=== PATIENT | male | born 1960 ===

== ENCOUNTER 2017-03-01 05:40 | Inpatient (IN) | payer BC ==
[2017-02-26 13:30] LABS: HEMATOCRIT 40.2 % (40.0-51.0)
[2017-02-26 13:34] LABS: ASCORBIC ACID (UR NOT ORDER) NEG (NEG); BILIRUBIN, URINE NEGATIVE (NEG); KETONE, URINE NEGATIVE (NEG); LEUKOCYTE ESTERASE(NOT OR NEG (NEG); WBC (NOT ORDERED) (RFLEX) < 1 (0-5)
[2017-02-26 13:40] LABS: BUN (BLOOD UREA NITROGEN) 17 MG/DL (6-23); CALCIUM, SERUM 8.9 MG/DL (8.5-10.4); CHLORIDE, SERUM 109 MMOL/L (96-112); CO2 (CARBON DIOXIDE) 29 MMOL/L (24-34); CREATININE 1.03 MG/DL (0.70-1.30); GFR AFRICAN AMERICAN 95 ML/MIN (>=60); GFR NON AFRICAN AMERICAN 82 ML/MIN (>=60); GLUCOSE, SERUM 96 MG/DL (60-99); POTASSIUM, SERUM 3.7 MMOL/L (3.5-5.3); SODIUM, SERUM 143 MMOL/L (135-148)
--- NOTE | ~2017-03-01 | OP ---
Record Of Operation [facility] [address] [place]. [address] NAME: PREET WILEY : 64 STATUS : DIS IN PAT#: [id number] AGE: 56 ADM/REG DATE : 03/01/17 MR#: [id number] REPORT SERV DATE: 03/04/17 DICTATED BY: ALEKSANDRA TENA DATE: 03/03/17 REPORT STATUS : Draft TRANSCRIBED BY: SALAS DATE: 03/03/17 DATE OF PROCEDURE: 03/01/2017 POOR AUDIO, INAUDIBLE, CUTTING IN AND OUT TITLE OF OPERATIONS: 1. Robot-assisted laparoscopic radical prostatectomy. 2. Robot-assisted laparoscopic right . PREOPERATIVE DIAGNOSIS: Prostate cancer. POSTOPERATIVE DIAGNOSIS: Prostate cancer. INDICATIONS: Mr. Wiley is a 56-year-old male prostate. He is counseled regarding risks and benefits. He has elected for robotic radical prostatectomy. ANESTHESIA: General. COMPLICATIONS: None. IMPLANTS: 1. 18-Croatian Frederick catheter anterior fat pad. 2. Prostate right. NARRATIVE: The patient was brought to the operating room, identified by his wristband. General anesthesia was induced. Ancef was given for preoperative antibiotics. He was placed in dorsal lithotomy position, prepped and draped in sterile fashion. His abdomen was insufflated with 15 mmHg using a Veress needle. An 18-Croatian catheter was placed into his bladder under sterile conditions. The balloon was inflated with 10 mL of sterile water. An 8-mm port was positioned. The abdomen was inspected. It was free of adhesions. There was on the left inguinal region from his prior hernia surgery. Standard port placement was performed with two 8-mm ports on left side of the body and one 8-mm port on the right side of the body. A 12-mm port was placed in the right lower quadrant and a 5-mm port was placed in the right upper quadrant for payroll assistant ports. The patient was placed in Trendelenburg and was docked. I incised the peritoneum sharply over the seminal vesicles and vas deferens posteriorly. dissected out bilaterally. Vas deferens were clipped and divided bilaterally. The pedicle to the seminal vesicles were clipped and divided bilaterally. Next, structures were lifted anteriorly. I incised an obvious fascia sharply. Denonvilliers fascia was swept onto the rectum from the base to the apex. A decision was made to perform an aggressive nerve-sparing prostatectomy given his negative MRI for extracapsular disease preoperatively. At this point, I carried the dissection laterally to the groove of the prostate and the neurovascular bundles. Next, the bladder wall was anterior abdominal wall with cautery. This exposed the pubic bone and prostate. The left side was somewhat adhesed from the mesh. The mesh was overlying the iliac vessels. Next, the fiber fatty tissue overlying the prostate was Record Of Operation [address] [place]. [address] NAME: PREET WILEY : 64 STATUS : DIS IN PAT#: [id number] AGE: 56 ADM/REG DATE : 03/01/17 MR#: [id number] REPORT SERV DATE: 03/04/17 DICTATED BY: ALEKSANDRA TENA DATE: 03/03/17 REPORT STATUS : Draft TRANSCRIBED BY: MODL DATE: 03/03/17 removed with bipolar cautery and scissors and sent to pathology as anterior fat pad. The puboprostatic ligaments were divided bilaterally. On the right side of the body, there was an artery which was clearly going beyond the prostate into the penile area. This was preserved without injury. The levator fibers were off the prostate from the base of the apex bilaterally. The puboprostatic ligaments were divided bilaterally. The dorsal vein was precisely identified and stapled with a 35-mm endovascular stapler. The urethra was then dissected out circumferentially. A 3-0 V-Loc suture was used to oversew some small dorsal venous bleeders. This dorsal venous complex was then tacked to the pubic bone with a 3-0 V-Loc suture and suspensory stitch. Next, a high release of the neurovascular bundles were then performed bilaterally. It was taken onto the prostatic capsule. This also identified the groove between the prostate and neurovascular bundles bilaterally. Next, a bladder neck sparing operation was performed. Fibrofatty tissue overlying the bladder neck was controlled with bipolar cautery and scissors. The bladder neck was precisely identified and entered anteriorly. The catheter was identified and lifted into the surgical field. The posterior bladder neck was then sharply divided. The prostate was then sharply divided off the bladder from the bladder neck down to the area of the pre-dissected seminal vesicles and vas deferens. These were delivered into the surgical field. Next, the pedicle prostate were clipped bilaterally. A nerve-sparing operation was performed in retrograde fashion in order to minimize any sort of tension on the nerves. The artery within the neurovascular bundle was preserved indicating maximal nerve sparing. The urethra was then divided indicating adequate urethral length. Posterior striated sphincter was then divided. The prostate was then free and placed into the EndoCatch bag. Next, attention was turned to the lymph node dissection. The fibrofatty tissue overlying the external iliac vein, obturator fossa, internal iliac vessels on the right side was removed. Care taken to clip the lymphatics proximally and distally. The obturator nerve was spared. The mesh overlying the left pelvic lymph nodes, safe lymph node dissection not possible. Therefore, I elected to not perform a left-sided lymph node dissection. Next, the posterior striated sphincter was reconstructed using a running 3-0 V-Loc suture. Finally, a vesicourethral anastomosis was performed with 2 interlocking 3-0 V-Loc sutures. An 18-Croatian Frederick catheter was placed. The balloon and the catheter were irrigated. Connection was water tight. The balloon was inflated with 15 mL of sterile water. The robot was undocked. The port was closed with 0 Vicryl suture using Ruben-Luis Manuel device. A round #10 BOO drain was placed in the left most lateral robotic port. It was sutured in place with a 2-0 nylon suture. The other ports were removed. The skin and fascia level at the supraumbilical port. The prostate and lymph nodes were removed in their respective EndoCatch bags. The fascia was closed with 0 Monocryl suture in a [id number]-va-[id number] fashion. The wound was irrigated and clear. BOO block was placed preoperatively. Skin was closed with 4-0 Monocryl suture. Dermabond dressing was placed. The patient was awoken from anesthesia and transferred to the recovery room in stable condition. There were no complications. BUCK/SALAS Aleksandra Penny Record Of Operation [address] [address] NAME: PREET WILEY : 64 STATUS : DIS IN PAT#: [id number] AGE: 56 ADM/REG DATE : 03/01/17 MR#: [id number] REPORT SERV DATE: 03/04/17 DICTATED BY: ALEKSANDRA TENA DATE: 03/03/17 REPORT STATUS : Draft TRANSCRIBED BY: SALAS DATE: 03/03/17 MD Reggie / [id number] CC: MD Bbo Forman M.D.
[~2017-03-01 05:40] MED LIST: DIOVAN HC1 PO; TYLENOL PM PO; V5 PO; ZYRTEC ALLGY10 MG PO
[2017-03-02 06:14] LABS: BASOPHILS 0.1 %; BASOPHILS ABSOLUTE 0.01 10/3/uL (0.0-0.16); EOSINOPHILS 0.1 %; EOSINOPHILS ABSOLUTE 0.01 10/3/uL (0.0-0.53); HEMATOCRIT 34.7 % (40.0-51.0); HEMOGLOBIN 11.8 g/dL (13.6-17.8); IMMATURE GRANULOCYTES 0.3 %; IMMATURE GRANULOCYTES ABSOLUTE 0.04 10/3/uL (0.0-0.11); LYMPHOCYTES 14.3 %; MANUAL DIFF NO %; MEAN CORPUSCULAR HEMOGLOB 29.5 pg (26.0-34.0); MEAN CORPUSCULAR VOLUME 86.8 fL (80-100); MEAN PLATELET VOLUME 9.4 fL (9.2-13.0); MONOCYTES ABSOLUTE 1.26 10/3/uL (0.21-1.20); NEUTROPHILS 76.2 %; NEUTROPHILS ABSOLUTE 10.62 10/3/uL (2.02-8.40); PLATELET COUNT 194 10/3/uL (150-400); RBC DISTRIBUTION WIDTH 13.1 % (12.0-16.0); WHITE BLOOD CELLS 13.9 10/3/uL (4.5-10.5)
[2017-03-02 06:15] LABS: BUN (BLOOD UREA NITROGEN) 15 MG/DL (6-23); CALCIUM, SERUM 8.4 MG/DL (8.5-10.4); CHLORIDE, SERUM 109 MMOL/L (96-112); CO2 (CARBON DIOXIDE) 26 MMOL/L (24-34); CREATININE 1.16 MG/DL (0.70-1.30); GFR AFRICAN AMERICAN 82 ML/MIN (>=60); GFR NON AFRICAN AMERICAN 71 ML/MIN (>=60); GLUCOSE, SERUM 112 MG/DL (60-99); POTASSIUM, SERUM 4.1 MMOL/L (3.5-5.3); SODIUM, SERUM 141 MMOL/L (135-148)
[2017-03-02] MEDS ORDERED: PCET PO (08:36)
[2017-03-02] MEDS ORDERED: VIAGRA100 MG PO (08:37)
[2017-03-02] MEDS ORDERED: CIP5 PO (08:38)
[2017-03-02] MEDS ORDERED: DSS PO (08:38)
[2017-03-02] MEDS ORDERED: PR12.5 PO (08:38)
== END 2017-03-02 14:10 | disposition home or self-care (01) | DRG 708 ==
LOC: SDC/OF 05:40 → PACU 10:54 → 4SO 11:51
PROVIDERS: Urology
PROC: 0VT34ZZ Resection of Bilateral Seminal Vesicles, Percutaneous Endoscopic Approach (ICD-10-PCS; principal; 2017-03-01 06:30)
PROC: 8E0W4CZ Robotic Assisted Procedure of Trunk Region, Percutaneous Endoscopic Approach (ICD-10-PCS; principal; 2017-03-01 06:30)
PROC: 0VTQ4ZZ Resection of Bilateral Vas Deferens, Percutaneous Endoscopic Approach (ICD-10-PCS; principal; 2017-03-01 06:30)
PROC: 0VT04ZZ Resection of Prostate, Percutaneous Endoscopic Approach (ICD-10-PCS; principal; 2017-03-01 06:30)
PROC: 07BC4ZX Excision of Pelvis Lymphatic, Percutaneous Endoscopic Approach, Diagnostic (ICD-10-PCS; principal; 2017-03-01 06:30)
DX: C61 Malignant neoplasm of prostate (principal); I10 Essential (primary) hypertension; G47.33 Obstructive sleep apnea (adult) (pediatric)
CPT/HCPCS: 36415; 80048; 81001; 82570; 85014; 85018; 85025; 86850; 86900; 86901; 88304; 88307; 88309; 88313; 88342; 93005; A9270-GY; J0690; J1170; J1885; J2250; J2405; J2550; J2710; J2795; J3010